=== PATIENT | female | born 2000 | race Caucasian/White ===

== ENCOUNTER 2024-01-17 06:49 | Inpatient (IN) | payer BC ==
[~2024-01-17 06:49] MED LIST: Bupivacaine 0.25% 10 ML SDV ONE; ePHEDrine 50 MG/ML SDV ONE
[2024-01-17] MEDS ORDERED: Lidocaine 1% 50 ML MDV INJECT PRN (07:01)
[2024-01-17] MEDS ORDERED: Nalbuphine 10 MG/ML Syringe IVPUSH PRN (07:01)
[2024-01-17] MEDS ORDERED: Calcium Carbonate 500 MG Tab.Chew PO PRN (07:01)
[2024-01-17] MEDS ORDERED: Ondansetron 4 MG/2 ML SDV IVPUSH PRN (07:01)
[2024-01-17] MEDS ORDERED: Oxytocin/Lactated Ringers 30 UNIT/500 ML BAG IV SCH (07:15)
[2024-01-17 07:21] LABS: BASOPHILS PERCENT AUTO 0.2 % (0.0-1.0); EOSINOPHILS PERCENT AUTO 0.2 % (0.0-6.0); HEMATOCRIT 39.2 % (37.0-47.0); HEMOGLOBIN 13.3 gm/dl (12.0-16.0); IMMATURE GRAN ABSOLUTE AUTO 0.07 K/mm3 (0.00-0.05); IMMATURE GRAN PERCENT AUTO 0.8 % (0.0-0.4); LYMPHOCYTES ABSOLUTE AUTO 1.8 K/mm3 (1.0-4.8); LYMPHOCYTES PERCENT AUTO 20.5 % (24.0-44.0); MEAN CORPUSCULAR HEMOGLOBIN 31.9 pg (28.0-32.0); MEAN CORPUSCULAR HGB CONC 33.9 g/dl (32.0-36.0); MEAN PLATELET VOLUME 9.9 fl (9.4-12.3); MONOCYTES ABSOLUTE AUTO 0.5 K/mm3 (0.0-0.8); MONOCYTES PERCENT AUTO 6.1 % (0.0-8.0); NEUTROPHILS ABSOLUTE AUTO 6.2 K/mm3 (1.8-7.7); NEUTROPHILS PERCENT AUTO 72.2 % (41.0-71.0); PLATELET COUNT,PLT 204 K/mm3 (150-400); RED BLOOD CELL COUNT 4.17 M/mm3 (4.10-5.30); WHITE BLOOD CELL COUNT,WBC 8.58 K/mm3 (3.9-11.3)
[2024-01-17] MEDS ORDERED: ePHEDrine 50 MG/ML SDV IVPUSH PRN (07:35)
[2024-01-17] MEDS ORDERED: diphenhydrAMINE 50 MG/ML SDV IVPUSH PRN (07:35)
[2024-01-17] MEDS: Lactated Ringers 1,000 ML IV SCH (09:35)
[2024-01-17] MEDS: Oxytocin/Lactated Ringers 30 UNIT/500 ML BAG IV SCH (09:35)
[2024-01-17] MEDS: fentaNYL 100 MCG/2 ML SDV EPIDUR PRN (11:50)
[2024-01-17] MEDS: Bupivacaine/fentaNYL/NS 100 ML Bag EPIDUR PRN (11:51)
[2024-01-17] MEDS ORDERED: Acetaminophen 325 MG Tab PO PRN (18:26)
[2024-01-17] MEDS ORDERED: Benzocaine/Menthol 20%-0.5% Spray 78 GM Cannister TOP PRN (18:26)
[2024-01-17] MEDS: Ibuprofen 600 MG Tab PO SCH (18:53)
[2024-01-17] MEDS: Witch Hazel Medicated Pads 40/Jar TOP PRN (18:53)
[2024-01-18] MEDS: Docusate Sodium 100 MG Cap PO PRN (07:27)
== END 2024-01-18 17:45 | disposition home or self-care (01) | DRG 560 ==
LOC: JD.OB 06:49 → OBSVTOIN 16:33 → JD.OB 16:33
PROVIDERS: ADMIT Obstetrics & Gynecology; ATTEND Obstetrics & Gynecology
PROC: 10E0XZZ Delivery of Products of Conception, External Approach (ICD-10-PCS; principal; 2024-01-17)
PROC: 10907ZC Drainage of Amniotic Fluid, Therapeutic from Products of Conception, Via Natural or Artificial Opening (ICD-10-PCS; 2024-01-17)
PROC: 3E033VJ Introduction of Other Hormone into Peripheral Vein, Percutaneous Approach (ICD-10-PCS; 2024-01-17)
PROC: 3E0R3BZ Introduction of Anesthetic Agent into Spinal Canal, Percutaneous Approach (ICD-10-PCS; 2024-01-17)
PROC: 00HU33Z Insertion of Infusion Device into Spinal Canal, Percutaneous Approach (ICD-10-PCS; 2024-01-17)
DX: O69.81X0 Labor and delivery complicated by cord around neck, without compression, not applicable or unspecified (principal); Z37.0 Single live birth; Z3A.39 39 weeks gestation of pregnancy; Z98.890 Other specified postprocedural states
CPT/HCPCS: 36415; 51701; 59025; 59409; 85025; 86592; A9270-GY; J0665; J3010; J3490; J7120; J7999